=== PATIENT | female | born 1950 | race Caucasian/White ===

== ENCOUNTER 2024-02-17 16:13 | Inpatient (IN) | payer MEDICARE, OTHER ==
[~2024-02-17] VITALS: Ht 149.9 cm; Wt 56.5 kg
[~2024-02-17 16:13] MED LIST: (None)20 M1 PO; ALBIPROI INH; ALBU90OI INH; ALEN70 PO; ASPI81CH PO; AZIT250 PO; BECL80OI INH; CALCAVITDA PO; CHOL10002 PO; CIME400 PO; CYAN500 PO; DIAZ10 PO; DIAZ5 PO; DULCOLAX5 MG PO; ERGO400 PO; FLUSAL2505 INH; FOLI1 PO; FURO40 PO; HYDSUL200 PO; IBUP800 PO; LEFL20 PO; LORPSEER12 PO; META800 PO; METTREX2.5 PO; MOMENI; MONT10T PO; MONT5TCH PO; Nexium40 MG PO; Norco 5-325 Ta1 EACH PO; OMEP20ER PO; OXYC10TA19 PO; OXYC5 PO; POTCHL10ER PO; POTCHL20ER PO; PRED5 PO; PROACE100 PO; PROM25 PO; QUAVAR INH; ROSU10TA PO; SERT50 PO; SULTRIDS PO; TRAM50 PO; Vibramycin100 MG PO
[2024-02-17] MEDS ORDERED: HYDROmorphone HCl/Pf 1MG SYR IV ONE (17:25)
[2024-02-17] MEDS ORDERED: OxyCODONE HCL 5 MG TAB PO PRN (17:45)
[2024-02-17] MEDS ORDERED: Bisacodyl 10 MG Supp PR PRN (17:50)
[2024-02-17] MEDS ORDERED: Ondansetron 4 MG TAB PO PRN (17:50)
[2024-02-17] MEDS ORDERED: HYDROmorphone HCl/Pf 1MG SYR IV PRN ×2 (17:50→19:30)
[2024-02-17] MEDS ORDERED: FLU VACC TS2024-25(6MOS UP)/PF 45 MCG/0.5 ML SYRINGE IM ONE (17:50)
[2024-02-17] MEDS ORDERED: Acetaminophen 325 MG TABLET PO PRN (17:50)
[2024-02-17] MEDS ORDERED: Magnesium Hydroxide Conc 10 ML UDC PO PRN (17:50)
[2024-02-17 17:54] LABS: BASOPHILS ABSOLUTE AUTO 0.05 K/mm3 (0.00-0.23); BASOPHILS PERCENT AUTO 1 % (0-2); EOSINOPHILS ABSOLUTE AUTO 0.07 K/mm3 (0.00-0.68); EOSINOPHILS PERCENT AUTO 1 % (0-6); Hematocrit 33.5 % (33.0-51.0); Hemoglobin 11.3 g/dL (11.5-16.0); IMMATURE GRAN ABSOLUTE AUTO 0.02 K/mm3 (0.00-0.10); IMMATURE GRAN PERCENT AUTO 0 % (0-1); LYMPHOCYTES PERCENT AUTO 14 % (21-46); MONOCYTES PERCENT AUTO 6 % (4-13); Mean Corpuscular HGB 29.6 pg (26.0-34.0); Mean Corpuscular HGB Conc 33.7 g/dL (31.5-36.5); Mean Corpuscular Volume 88 fL (80-100); Mean Platelet Volume 9.2 fL (9.1-12.4); NEUTROPHILS ABSOLUTE AUTO 5.48 K/mm3 (1.96-9.15); NEUTROPHILS PERCENT AUTO 78 % (41-73); Platelet Count 267 K/mm3 (150-400); RDW Coefficient Variation 11.9 % (11.7-14.2); Red Blood Cell Count 3.82 M/mm3 (3.80-5.20); White Blood Cell Count 7.02 K/mm3 (4.00-11.30)
[2024-02-17] MEDS ORDERED: NS 1,000 ML IV SCH (18:00)
[2024-02-17 18:13] LABS: Albumin, Blood 3.2 g/dL (3.4-5.0); Albumin/Globulin Ratio 0.7 (0.8-1.8); Bilirubin, Total 0.5 mg/dL (0.1-1.0); Bun/Creatinine Ratio 19.7 (12.0-20.0); Calcium, Blood 9.4 mg/dL (8.5-10.1); Creatinine, Blood 0.91 mg/dL (0.40-1.00); Globulin, Blood 4.3 g/dL (2.2-4.0); Potassium, Blood 3.8 mmol/L (3.5-5.5); Total Protein, Blood 7.5 g/dL (6.4-8.2)
[2024-02-17] MEDS ORDERED: Cyclobenzaprine HCl 10 MG Tab PO PRN (22:30)
[2024-02-17 22:44] VITALS: BP 112/55
[2024-02-18] VITALS (16 sets, daily range): BP systolic 104–149; BP diastolic 53–70
[2024-02-18 06:03] LABS: BASOPHILS ABSOLUTE AUTO 0.04 K/mm3 (0.00-0.23); BASOPHILS PERCENT AUTO 1 % (0-2); EOSINOPHILS ABSOLUTE AUTO 0.05 K/mm3 (0.00-0.68); EOSINOPHILS PERCENT AUTO 1 % (0-6); Hematocrit 28.6 % (33.0-51.0); Hemoglobin 9.5 g/dL (11.5-16.0); IMMATURE GRAN ABSOLUTE AUTO 0.02 K/mm3 (0.00-0.10); IMMATURE GRAN PERCENT AUTO 0 % (0-1); LYMPHOCYTES ABSOLUTE AUTO 0.76 K/mm3 (0.84-5.20); LYMPHOCYTES PERCENT AUTO 11 % (21-46); MONOCYTES ABSOLUTE AUTO 0.39 K/mm3 (0.16-1.47); MONOCYTES PERCENT AUTO 6 % (4-13); Mean Corpuscular HGB 29.8 pg (26.0-34.0); Mean Corpuscular HGB Conc 33.2 g/dL (31.5-36.5); Mean Corpuscular Volume 90 fL (80-100); Mean Platelet Volume 8.9 fL (9.1-12.4); NEUTROPHILS ABSOLUTE AUTO 5.48 K/mm3 (1.96-9.15); NEUTROPHILS PERCENT AUTO 81 % (41-73); Platelet Count 206 K/mm3 (150-400); RDW Coefficient Variation 11.9 % (11.7-14.2); RDW Standard Deviation 38.5 fL (35.1-46.3); Red Blood Cell Count 3.19 M/mm3 (3.80-5.20); White Blood Cell Count 6.74 K/mm3 (4.00-11.30)
[2024-02-18 06:40] LABS: Albumin, Blood 2.8 g/dL (3.4-5.0); Albumin/Globulin Ratio 0.8 (0.8-1.8); Bilirubin, Total 0.9 mg/dL (0.1-1.0); Bun/Creatinine Ratio 19.8 (12.0-20.0); Calcium, Blood 8.7 mg/dL (8.5-10.1); Creatinine, Blood 0.86 mg/dL (0.40-1.00); Globulin, Blood 3.7 g/dL (2.2-4.0); Total Protein, Blood 6.5 g/dL (6.4-8.2)
[2024-02-18] MEDS ORDERED: fosamax (07:56)
[2024-02-18] MEDS ORDERED: COMBIVENT RESPIM4 G1 (07:57)
[2024-02-18] MEDS ORDERED: VIT D3-VIT K21 EACH PO (07:59)
[2024-02-18] MEDS ORDERED: GENTEAL TEARS SE8 ML (07:59)
[2024-02-18] MEDS ORDERED: PRESERVISION A1 EAC2 PO (08:00)
[2024-02-18] MEDS ORDERED: DOCU100 PO (08:01)
[2024-02-18] MEDS ORDERED: WOMEN MULTIVIT1 EAC1 PO (08:01)
[2024-02-18] MEDS ORDERED: DESL5 PO (08:02)
[2024-02-18] MEDS ORDERED: KLOR-CON M1010 MEQ PO (08:03)
--- NOTE | 2024-02-18 08:34 | NUR ---
SUMMARY PT ADMITTED THIS SHIFT WITH FX HIP.FAMILY AT BEDSIDE.ORIENTED TO ROOM AND CALL LIGHT SYSEM. NPO AFTER MIDNOC FOR POTENTIAL OR TODAY.FREQUENT REQUESTS ANAD REPOSITIONING THIS SHIFT.DISCUSSED PAIN AND POSITIONING FOR COMFORT WITH HIP, PT NOT FULLY FOLLOWING DIRECTION.PT HAS HX CHRONIC PAIN AND ON PAIN MEDICATION REPORTS X 20 YRS.PT RESTING IN BED WITH PUREWICK IN PLACE CIRC CHECKS INTACT.
[2024-02-18] MEDS ORDERED: ALEN70 PO (09:24)
[2024-02-18] MEDS ORDERED: Peg 400/Hypromellose/Glycerin 15 DROP/ML BTL BOTHEYES PRN (10:55)
[2024-02-18] MEDS ORDERED: Ipratropium/Albuterol SulF 2.5-0.5MG/3 ML Amp INH PRN (10:55)
[2024-02-18] MEDS ORDERED: Tranexamic Acid 100 ML IV SCH (11:25)
[2024-02-18] MEDS ORDERED: CeFAZolin Sodium 2,000 MG in NS 100 ML IV SCH ×2 (11:25→20:00)
[2024-02-18] MEDS ORDERED: Lactated Ringer's 1,000 ML IV SCH (11:25)
[2024-02-18] MEDS ORDERED: Magnesium Hydroxide Conc 10 ML UDC PO PRN (11:30)
[2024-02-18] MEDS ORDERED: FentaNYL Citrate 50 MCG/ML 2 ML Injection ONE (11:58)
[2024-02-18] MEDS ORDERED: propofoL 20 ML IV ONE (11:58)
[2024-02-18] MEDS ORDERED: Lidocaine HCl 2% 20 ML MDV ONE (11:59)
[2024-02-18] MEDS ORDERED: Dexamethasone Sod Phos 10 MG/ML 1ML VIAL ONE (12:20)
[2024-02-18] MEDS ORDERED: Ondansetron HCl 2 MG / ML 2ML Vial ONE (13:02)
[2024-02-18] MEDS ORDERED: Ketorolac Tromethamine 30mg Vial ONE (13:30)
[2024-02-18] MEDS ORDERED: Ondansetron HCl 2 MG / ML 2ML Vial IV PRN (13:35)
--- NOTE | 2024-02-18 14:01 | NUR ---
ARRIVAL TO UNIT PT ARRIVED TO UNIT VIA BED. PT ASLEEP, EASILY ROUSABLE. O2 2L VIA NC TO MAINTAIN SAT >90%, CONT BIOX IN USE - VSS. DENIES N/V AT THIS TIME. AQUACEL x2 ON R HIP C/D/I. PT REPORTS PAIN TOLERABLE AT THIS TIME. CALL LIGHT IN REACH, BED IN LOWEST POSITION.
--- NOTE | 2024-02-18 19:15 | NUR ---
SHIFT SUMMARY POD 0 R HIP NAILING. NO ACUTE CHANGES TODAY. VSS, PT ON 2L O2 VIA NC TO MAINTAIN SAT >90%, CONT BIOX IN USE. TOLERATING WATER. BEDREST AT THIS TIME, WBAT ON RLE, PT REPORTS PAINFUL. PT MEDICATED PER EMAR FOR PAIN, PT REPORTS PAIN MANAGEMENT DIFFICULT R/T LONG-TERM NARCOTICS USAGE. AQUACEL x2 C/D/I c MIN SHADOWING ON LOWER AQUACEL. STRAIGHT CATH x1 THIS SHIFT R/T RETENTION, ATTENDS IN USE. ANTICIPATED TO WORK WITH PHYSCIAL THERAPY IN AM. CALL LIGHT IN REACH, BED IN LOWEST POSITION, REPORT GIVEN TO GRACIELA GOMEZ.
[2024-02-18] MEDS ORDERED: Docusate Sodium 100 MG Cap PO SCH (21:00)
[2024-02-18] MEDS ORDERED: Cholecalciferol 1000 Unit Tablet (=25MCG) PO SCH (21:00)
[2024-02-19] VITALS (8 sets, daily range): BP systolic 89–110; BP diastolic 45–56
--- NOTE | 2024-02-19 04:08 | NUR ---
SHIFT SUMMARY POD1 R HIP NAILING. PT ON RA SINCE MIDNIGHT, BIMAL WELL, SPO2 MAINTAINED AT/ABOVE 90%. PT UP TO BATHROOM FOR VOIDS, NOW APPROPRIATE FOR 1PA USING FWW AND GAIT BELT. PT ABLE TO REST DURING SHIFT. PT VOICED UNDERSTANDING OF PLAN OF CARE, DENIES QUESTIONS/CONCERNS AT THIS TIME.
--- NOTE | 2024-02-19 05:24 | NUR ---
OXYGEN THERAPY PT ON 2L LFNC AT BEGINNING OF SHIFT. WEANED TO RA BY MIDNIGHT. BIMAL WELL, SPO2 MAINTAINED AT OR ABOVE 90% ON RA OVERNIGHT.
[2024-02-19 05:43] LABS: BASOPHILS ABSOLUTE AUTO 0.01 K/mm3 (0.00-0.23); BASOPHILS PERCENT AUTO 0 % (0-2); EOSINOPHILS PERCENT AUTO 0 % (0-6); Hematocrit 24.1 % (33.0-51.0); Hemoglobin 8.1 g/dL (11.5-16.0); IMMATURE GRAN ABSOLUTE AUTO 0.06 K/mm3 (0.00-0.10); IMMATURE GRAN PERCENT AUTO 1 % (0-1); LYMPHOCYTES ABSOLUTE AUTO 0.56 K/mm3 (0.84-5.20); LYMPHOCYTES PERCENT AUTO 6 % (21-46); MONOCYTES ABSOLUTE AUTO 0.55 K/mm3 (0.16-1.47); MONOCYTES PERCENT AUTO 6 % (4-13); Mean Corpuscular HGB 29.9 pg (26.0-34.0); Mean Corpuscular HGB Conc 33.6 g/dL (31.5-36.5); Mean Corpuscular Volume 89 fL (80-100); Mean Platelet Volume 9.5 fL (9.1-12.4); NEUTROPHILS ABSOLUTE AUTO 7.95 K/mm3 (1.96-9.15); NEUTROPHILS PERCENT AUTO 87 % (41-73); Platelet Count 206 K/mm3 (150-400); RDW Coefficient Variation 11.8 % (11.7-14.2); RDW Standard Deviation 37.6 fL (35.1-46.3); Red Blood Cell Count 2.71 M/mm3 (3.80-5.20); White Blood Cell Count 9.13 K/mm3 (4.00-11.30)
[2024-02-19 06:04] LABS: Bun/Creatinine Ratio 24.3 (12.0-20.0); Calcium, Blood 8.7 mg/dL (8.5-10.1); Creatinine, Blood 0.82 mg/dL (0.40-1.00); Potassium, Blood 3.9 mmol/L (3.5-5.5)
[2024-02-19] MEDS ORDERED: Enoxaparin 40 MG/0.4 ML SYR SC SCH (09:00)
[2024-02-19] MEDS ORDERED: Docusate Sodium 100 MG Cap PO SCH (09:00)
[2024-02-19] MEDS ORDERED: Multivitamins/Minerals 1 Tab PO SCH (09:00)
[2024-02-19 11:57] LABS: Hematocrit 24.2 % (33.0-51.0); Hemoglobin 8.2 g/dL (11.5-16.0); Mean Corpuscular HGB 29.9 pg (26.0-34.0); Mean Corpuscular HGB Conc 33.9 g/dL (31.5-36.5); Mean Corpuscular Volume 88 fL (80-100); Mean Platelet Volume 9.5 fL (9.1-12.4); Platelet Count 209 K/mm3 (150-400); RDW Coefficient Variation 11.9 % (11.7-14.2); RDW Standard Deviation 37.8 fL (35.1-46.3); Red Blood Cell Count 2.74 M/mm3 (3.80-5.20); White Blood Cell Count 11.35 K/mm3 (4.00-11.30)
--- NOTE | 2024-02-19 16:57 | NUR ---
SHIFT SUMMARY POD 1 HIP NAILING. NO ACUTE CHANGES TODAY. VSS, CONT BIOX IN USE, MIN HYPOTENSIVE THIS SHIFT- ASYMPTOMATIC. TOLERATING ORALS. VOIDING. IV SALIENE LOCKED. AQUACEL x2 C/D/I. AMBULATES USING FWW c 1 PERSON ASSIST, WORKED c PHYSCIAL THERAPY TODAY. PT REPORTS PAIN TOLERABLE c ORAL PAIN MEDICATIONS PER EMAR. ANTICIPATED D/C c HH TOMORROW. CALL LIGHT IN REACH, PT RESTING IN BED, WILL REPORT TO GRACIELA GOMEZ.
[2024-02-19] MEDS ORDERED: Calcium Carbonate 500 MG Tab Chew PO PRN (23:10)
--- NOTE | 2024-02-20 04:34 | NUR ---
SHIFT SUMMARY POD2 R HIP NAILING. PAIN MANAGED UTILIZING NPIS AND PER EMAR. X2 AQUACELL DRESSINGS TO R HIP REMAINED C/D/I OVER SHIFT. SBA USING FWW AND GB. PT ABLE TO VOICE NEEDS, CALL LIGHT IN REACH AND INSTRUCTED ON USE. PT VOICED UNDERSTANDING OF PLAN OF CARE, DENIES QUESTIONS/CONCERNS AT THIS TIME.
[2024-02-20] MEDS ORDERED: Alendronate Sodium 70 MG Tablet PO SCH (06:00)
[2024-02-20 07:29] VITALS: BP 134/64
[2024-02-20 07:34] LABS: BASOPHILS ABSOLUTE AUTO 0.04 K/mm3 (0.00-0.23); BASOPHILS PERCENT AUTO 1 % (0-2); EOSINOPHILS ABSOLUTE AUTO 0.15 K/mm3 (0.00-0.68); EOSINOPHILS PERCENT AUTO 2 % (0-6); Hematocrit 25.9 % (33.0-51.0); Hemoglobin 8.7 g/dL (11.5-16.0); IMMATURE GRAN ABSOLUTE AUTO 0.03 K/mm3 (0.00-0.10); IMMATURE GRAN PERCENT AUTO 0 % (0-1); LYMPHOCYTES ABSOLUTE AUTO 2.36 K/mm3 (0.84-5.20); LYMPHOCYTES PERCENT AUTO 28 % (21-46); MONOCYTES ABSOLUTE AUTO 0.62 K/mm3 (0.16-1.47); MONOCYTES PERCENT AUTO 7 % (4-13); Mean Corpuscular HGB 30.2 pg (26.0-34.0); Mean Corpuscular HGB Conc 33.6 g/dL (31.5-36.5); Mean Corpuscular Volume 90 fL (80-100); Mean Platelet Volume 9.5 fL (9.1-12.4); NEUTROPHILS ABSOLUTE AUTO 5.25 K/mm3 (1.96-9.15); NEUTROPHILS PERCENT AUTO 62 % (41-73); Platelet Count 239 K/mm3 (150-400); RDW Standard Deviation 38.6 fL (35.1-46.3); Red Blood Cell Count 2.88 M/mm3 (3.80-5.20); White Blood Cell Count 8.45 K/mm3 (4.00-11.30)
[2024-02-20 07:49] LABS: Bun/Creatinine Ratio 23.2 (12.0-20.0); Calcium, Blood 9.9 mg/dL (8.5-10.1); Creatinine, Blood 0.86 mg/dL (0.40-1.00)
[2024-02-20] MEDS ORDERED: OxyCODONE HCL 5 MG TAB PO PRN (07:50)
[2024-02-20] MEDS ORDERED: Methotrexate Sod 2.5 MG Tab PO SCH (09:00)
[2024-02-20] MEDS ORDERED: ACET325 PO (13:41)
[2024-02-20] MEDS ORDERED: OXYC5 PO (13:41)
[2024-02-20 14:35] VITALS: BP 142/73
--- NOTE | 2024-02-20 15:05 | NUR ---
Pt. is awake and sitting dressed on the side of her bed awaiting discharge. Pt. is pleasant and welcomed my visit. Facilitated a life review and considered matters of sruthi and family. Prayed for the Pt. Pt. verbalized gratitude for the spiritual care visit.
[2024-02-20] MEDS ORDERED: Mometasone/Formoterol MDI 200/5 mcg 13 GM INH SCH (15:15)
[2024-02-20] MEDS ORDERED: Albuterol HFA200 ACT/6.7 GM INH INH PRN (15:15)
--- NOTE | 2024-02-20 15:52 | NUR ---
discharged dc reviewed with pt and family by joana hoffman rn. pt left unit in [place] w/possessions, aquacel dressings, and dc paperwork, accompanied by family.
[2024-02-20] MEDS ORDERED: Montelukast Sodium 10 MG Tab PO SCH (21:00)
[2024-02-21] MEDS ORDERED: Pantoprazole Sodium 40 MG Tab PO SCH (06:00)
[2024-02-21] MEDS ORDERED: Furosemide 40 MG Tab PO SCH (09:00)
== END 2024-02-20 15:50 | disposition home or self-care (01) | DRG 482 ==
LOC: ER 16:13 → SURS 17:44
PROVIDERS: Family Medicine; Orthopaedic Surgery; Physician Assistant; Registered Nurse; Student in an Organized Health Care Education/Training Program; ADMIT Hospitalist
PROC: 0QH634Z Insertion of Internal Fixation Device into Right Upper Femur, Percutaneous Approach (ICD-10-PCS; principal; 2024-02-18 11:30)
DX: S72.141A Displaced intertrochanteric fracture of right femur, initial encounter for closed fracture (principal); W18.30XA Fall on same level, unspecified, initial encounter; D64.9 Anemia, unspecified; M06.9 Rheumatoid arthritis, unspecified; J44.9 Chronic obstructive pulmonary disease, unspecified; K21.9 Gastro-esophageal reflux disease without esophagitis; M51.369 Other intervertebral disc degeneration, lumbar region without mention of lumbar back pain or lower extremity pain; E78.00 Pure hypercholesterolemia, unspecified; Z98.890 Other specified postprocedural states; Z79.52 Long term (current) use of systemic steroids; Z91.018 Allergy to other foods; Z88.0 Allergy status to penicillin; Z88.2 Allergy status to sulfonamides; Z88.1 Allergy status to other antibiotic agents; Z79.899 Other long term (current) drug therapy; Z79.891 Long term (current) use of opiate analgesic; Z79.82 Long term (current) use of aspirin
CPT/HCPCS: 36415; 72100; 73110; 73502; 73552; 73562-RT; 73610; 80048; 80053; 85025; 85027; 86850; 86900; 86901; 93005; 93010; 94762; 96374; 97110; 97162; 97530; 99284-25; A9270; C1713; C1769; J0690; J1100; J1170; J1650; J1885; J2405; J2704; J3010; J7030; J7120